=== PATIENT | female | born 1980 | race Caucasian/White ===

== ENCOUNTER 2017-12-28 17:43 | Emergency (ER) | payer MEDICAID ==
[~2017-12-28] VITALS: Ht 165.1 cm; Wt 104.4 kg
[2017-12-28 17:50] VITALS: BP 125/87
[2017-12-28] MEDS ORDERED: IBUPROFEN 200 MG TABLET ONE (18:29)
[2017-12-28] MEDS ORDERED: IBUPROFEN 200 MG TABLET PO ONE (18:30)
== END 2017-12-28 19:37 | disposition home or self-care (01) ==
LOC: ED 19:30
DX: S92.314A Nondisplaced fracture of first metatarsal bone, right foot, initial encounter for closed fracture (principal); X58.XXXA Exposure to other specified factors, initial encounter; Y93.89 Activity, other specified; Y92.89 Other specified places as the place of occurrence of the external cause; Y99.8 Other external cause status
CPT/HCPCS: 29515; 99284

== ENCOUNTER 2018-06-30 02:29 | Emergency (ER) | payer MEDICAID ==
[~2018-06-30] VITALS: Ht 165.1 cm; Wt 99.0 kg
[2018-06-30 02:30] VITALS: BP 128/86
[2018-06-30] MEDS ORDERED: LIDOCAINE 1%, 10ML INFIL ONE (03:00)
[2018-06-30] MEDS ORDERED: IBUPROFEN 600 MG TABLET ONE (03:44)
[2018-06-30] MEDS ORDERED: IBUPROFEN 200 MG TABLET PO ONE (04:00)
== END 2018-06-30 03:48 | disposition home or self-care (01) ==
LOC: ED 03:40
DX: L03.114 Cellulitis of left upper limb (principal); F17.200 Nicotine dependence, unspecified, uncomplicated
CPT/HCPCS: 10060; 99283

== ENCOUNTER 2019-06-26 15:08 | Emergency (ER) | payer MEDICAID ==
[~2019-06-26] VITALS: Ht 165.1 cm; Wt 105.3 kg
[2019-06-26 15:22] VITALS: BP 129/82
[2019-06-26] MEDS ORDERED: LIDOCAINE-MPF 1%, 5ML ONE (15:43)
[2019-06-26] MEDS ORDERED: DIPH,PERTUSS(ACELL),TET VAC/PF 0.5 ML IM-VACC ONE ×2 (16:00→16:27)
[2019-06-26] MEDS ORDERED: CEPHALEXIN 500 MG CAPSULE PO ONE (16:00)
[2019-06-26] MEDS ORDERED: LIDOCAINE 1%-EPI 1:100K, 20ML SQ ONE (16:00)
[2019-06-26] MEDS ORDERED: ACETAMINOPHEN 500 MG TABLET PO ONE (16:00)
[2019-06-26] MEDS ORDERED: SULFAMETH./TRIMETHOPRIM DS 800MG/160MG TABLET PO ONE (16:00)
[2019-06-26] MEDS ORDERED: SULFAMETH./TRIMETHOPRIM DS 800MG/160MG TABLET ONE (16:26)
[2019-06-26] MEDS ORDERED: CEPHALEXIN 500 MG CAPSULE ONE (16:26)
[2019-06-26] MEDS ORDERED: ACETAMINOPHEN 500 MG TABLET ONE (16:27)
--- NOTE | 2019-06-26 17:37 | NUR ---
Patient given discharge instructions and they have confirmed that they understand the instructions. Patient ambulatory with steady gait.
== END 2019-06-26 17:38 | disposition home or self-care (01) ==
LOC: ED 16:19
DX: L02.413 Cutaneous abscess of right upper limb (principal); G89.11 Acute pain due to trauma; M79.631 Pain in right forearm; M79.89 Other specified soft tissue disorders; F17.200 Nicotine dependence, unspecified, uncomplicated; X58.XXXA Exposure to other specified factors, initial encounter; Y93.89 Activity, other specified; Y92.89 Other specified places as the place of occurrence of the external cause; Y99.8 Other external cause status
CPT/HCPCS: 10060; 90471; 90715; 99284; J3490; 96372